=== PATIENT | female | born 1965 | race Caucasian/White ===

== ENCOUNTER 2017-08-31 00:44 | Emergency (ER) | payer OTHER, BC ==
[~2017-08-31] VITALS: Ht 165.1 cm; Wt 115.7 kg
[~2017-08-31 00:44] MED LIST: CITA20 PO; METO25 PO; Metformin HCl750 MG PO; Pepcid40 MG PO
[2017-08-31] MEDS ORDERED: DILTIAZEM 24HR240 M1 PO (01:12)
[2017-08-31 01:46] LABS: Source, Urine Clean Catch
[2017-08-31 01:52] LABS: Bilirubin, Urine Neg (Neg); Blood, Urine 5+ (Neg); Glucose Qualitative, Urine Neg (Neg); Ketones, Urine Neg (Neg); Leukocyte Esterase, Urine 1+ (Neg); Nitrite, Urine Neg (Neg); Protein, Urine 4+ (Neg); Urobilinogen, Urine NORM (Normal)
[2017-08-31 01:55] LABS: Appearance, Urine Turbid (Clear); Color, Urine Red (P-Yellow)
[2017-08-31 02:03] LABS: Bacteria Few /hpf; Red Blood Cells, Urine TNTC /hpf (0-2); Squamous Epithelial Cells Not Seen /hpf (Few)
[2017-08-31] MEDS ORDERED: CEPH500 PO (02:52)
== END 2017-08-31 03:08 | disposition home or self-care (01) ==
LOC: ER 00:44
PROVIDERS: Emergency Medicine
DX: R31.9 Hematuria, unspecified (principal); Z88.1 Allergy status to other antibiotic agents; Z88.8 Allergy status to other drugs, medicaments and biological substances; Z79.899 Other long term (current) drug therapy; Z79.84 Long term (current) use of oral hypoglycemic drugs
CPT/HCPCS: 74176; 81001; 87077; 87086; 87186; 99284

== ENCOUNTER 2017-09-04 06:32 | Day surgery (SDC) | payer OTHER, BC ==
[~2017-09-04] VITALS: Ht 165.1 cm; Wt 116.0 kg
[~2017-09-04 06:32] MED LIST changes: +CEPH500 PO; +DILTIAZEM 24HR240 M1 PO
== END 2017-09-04 15:15 | disposition home or self-care (01) ==
LOC: MHTC 06:32
PROC: B211YZZ Fluoroscopy of Multiple Coronary Arteries using Other Contrast (ICD-10-PCS; principal; 2017-09-04)
DX: I42.1 Obstructive hypertrophic cardiomyopathy (principal); I10 Essential (primary) hypertension; F32.9 Major depressive disorder, single episode, unspecified; E66.9 Obesity, unspecified
CPT/HCPCS: 93454; 99152; C1769; C1894; J1644; J2250; J3010; J7030; Q9967

== ENCOUNTER 2018-07-13 16:56 | Emergency (ER) | payer OTHER, BC ==
[~2018-07-13] VITALS: Ht 165.1 cm; Wt 117.9 kg
[2018-07-13 18:14] LABS: BASOPHILS ABSOLUTE AUTO 0.07 K/mm3 (0.00-0.23); BASOPHILS PERCENT AUTO 1 % (0-2); EOSINOPHILS PERCENT AUTO 3 % (0-6); Hematocrit 43.6 % (33.0-51.0); IMMATURE GRAN ABSOLUTE AUTO 0.04 K/mm3 (0.00-0.10); IMMATURE GRAN PERCENT AUTO 1 % (0-1); LYMPHOCYTES ABSOLUTE AUTO 2.61 K/mm3 (0.84-5.20); LYMPHOCYTES PERCENT AUTO 33 % (21-46); MONOCYTES ABSOLUTE AUTO 0.34 K/mm3 (0.16-1.47); MONOCYTES PERCENT AUTO 4 % (4-13); Mean Corpuscular HGB Conc 32.1 g/dL (31.5-36.5); Mean Corpuscular Volume 90 fL (80-100); NEUTROPHILS PERCENT AUTO 59 % (41-73); Platelet Count 287 K/mm3 (150-400); RDW Coefficient Variation 14.6 % (11.7-14.2); RDW Standard Deviation 48.9 fL (35.1-46.3); Red Blood Cell Count 4.83 M/mm3 (3.80-5.20); White Blood Cell Count 7.96 K/mm3 (4.00-11.30)
[2018-07-13 18:36] LABS: Alanine Aminotransfer (ALT/SGP 29 U/L (12-78); Albumin, Blood 3.8 g/dL (3.4-5.0); Albumin/Globulin Ratio 0.9 (0.8-1.8); Alk Phos 102 U/L (50-136); Anion Gap 9 mmol/L (6-16); Aspartate Aminotrans (AST/SGOT 27 U/L (12-37); Bilirubin, Total 0.4 mg/dL (0.1-1.0); Blood Urea Nitrogen 18 mg/dL (8-24); Bun/Creatinine Ratio 25.6 (12.0-20.0); CO2, Blood 27 mmol/L (21-32); Calcium, Blood 9.1 mg/dL (8.5-10.1); Chloride, Blood 104 mmol/L (98-108); Globulin, Blood 4.2 g/dL (2.2-4.0); Glomerular Filtration Rate >60 (60-); Glucose, Blood 171 mg/dL (70-99); Potassium, Blood 3.6 mmol/L (3.5-5.5); Sodium, Blood 140 mmol/L (136-145)
[2018-07-13] MEDS ORDERED: CARV3.125 PO (19:38)
== END 2018-07-13 20:26 | disposition home or self-care (01) ==
LOC: ER 16:56
PROVIDERS: Emergency Medicine
DX: K43.9 Ventral hernia without obstruction or gangrene (principal); I42.9 Cardiomyopathy, unspecified; Z88.1 Allergy status to other antibiotic agents; Z91.048 Other nonmedicinal substance allergy status; Z79.84 Long term (current) use of oral hypoglycemic drugs; Z79.899 Other long term (current) drug therapy
CPT/HCPCS: 36415; 71250; 80053; 83880; 85025; 93005; 93010; 99284-25

== ENCOUNTER 2019-09-21 00:13 | Observation (INO) | payer OTHER, BC ==
[~2019-09-21] VITALS: Ht 165.1 cm; Wt 124.9 kg
[~2019-09-21 00:13] MED LIST changes: +CARV3.125 PO
[2019-09-21] MEDS ORDERED: GEMFIBROZIL600 MG PO (00:27)
[2019-09-21] MEDS ORDERED: OMEP20ER PO (00:28)
[2019-09-21] MEDS ORDERED: OXYC5 (00:29)
[2019-09-21 01:27] LABS: BASOPHILS ABSOLUTE AUTO 0.06 K/mm3 (0.00-0.23); BASOPHILS PERCENT AUTO 1 % (0-2); EOSINOPHILS ABSOLUTE AUTO 0.24 K/mm3 (0.00-0.68); EOSINOPHILS PERCENT AUTO 3 % (0-6); Hematocrit 39.9 % (33.0-51.0); Hemoglobin 12.7 g/dL (11.5-16.0); IMMATURE GRAN ABSOLUTE AUTO 0.03 K/mm3 (0.00-0.10); IMMATURE GRAN PERCENT AUTO 0 % (0-1); LYMPHOCYTES ABSOLUTE AUTO 2.11 K/mm3 (0.84-5.20); LYMPHOCYTES PERCENT AUTO 25 % (21-46); MONOCYTES ABSOLUTE AUTO 0.55 K/mm3 (0.16-1.47); MONOCYTES PERCENT AUTO 7 % (4-13); Mean Corpuscular HGB 29.1 pg (26.0-34.0); Mean Corpuscular HGB Conc 31.8 g/dL (31.5-36.5); Mean Corpuscular Volume 92 fL (80-100); Mean Platelet Volume 9.8 fL (9.1-12.4); NEUTROPHILS ABSOLUTE AUTO 5.53 K/mm3 (1.96-9.15); NEUTROPHILS PERCENT AUTO 65 % (41-73); Platelet Count 306 K/mm3 (150-400); RDW Coefficient Variation 13.9 % (11.7-14.2); RDW Standard Deviation 47.1 fL (35.1-46.3); Red Blood Cell Count 4.36 M/mm3 (3.80-5.20); White Blood Cell Count 8.52 K/mm3 (4.00-11.30)
[2019-09-21 01:48] LABS: Alanine Aminotransfer (ALT/SGP 142 U/L (12-78); Albumin, Blood 3.6 g/dL (3.4-5.0); Albumin/Globulin Ratio 0.9 (0.8-1.8); Alk Phos 140 U/L (50-136); Anion Gap 6 mmol/L (6-16); Aspartate Aminotrans (AST/SGOT 227 U/L (12-37); Bilirubin, Total 0.5 mg/dL (0.1-1.0); Blood Urea Nitrogen 19 mg/dL (8-24); Bun/Creatinine Ratio 27.3 (12.0-20.0); CO2, Blood 29 mmol/L (21-32); Calcium, Blood 9.2 mg/dL (8.5-10.1); Chloride, Blood 105 mmol/L (98-108); Globulin, Blood 3.9 g/dL (2.2-4.0); Glomerular Filtration Rate >60 (60-); Glucose, Blood 128 mg/dL (70-99); Potassium, Blood 3.9 mmol/L (3.5-5.5); Sodium, Blood 140 mmol/L (136-145); Total Protein, Blood 7.5 g/dL (6.4-8.2); Troponin I <0.015 ng/mL (0.000-0.040)
[2019-09-21 04:44] LABS: CHOL/HDL RATIO 3.8; Cholesterol 199 mg/dL (50-200); HDL Cholesterol 52 mg/dL (>39); Low Density Lipoprotein Chol 104 mg/dL (0-110); Triglycerides 215 mg/dL (30-160); Very Low Density Lipoprot Chol 43 mg/dL (6-32)
--- NOTE | 2019-09-21 05:38 | NUR ---
SHIFT SUMMARY/ARRIVAL TO UNIT. PT ARRIVED TO UNIT VIA WHEELCHAIR, TRANSFERED SELF TO BED, NO WEAKNESS NOTED. PT REPORTS PAIN IN ABDOMEN DIRECTLY BELOW HER SURGICAL SCAR FROM 07/29/19 MID STERNAL REGION. DENIES PAIN OTHERWISE. DENIES NAUSEA. NPO SINCE ARRIVAL TO UNIT, EDUCATED PT ON NPO STATUS. PT [id number] AND IND IN ROOM. UP TO RESTROOM TO VOID. ORIENTED TO UNIT. PLAN TO CONSULT SURGERY TODAY.
--- NOTE | 2019-09-21 07:00 | NUR ---
RECVD REPORT FROM PREVIOUS RN DANTE, PT AWAKENED, A/O X 4, PLEASANT/COOPRATIVE, DENIES CHEST OR EPIGASTRIC PAIN AT THIS TIME, NO NAUSEA. BED IN LOWEST POSITION, BED RAILS UP X 2, CALL LIGHT WITHIN REACH
--- NOTE | 2019-09-21 10:02 | NUR ---
pt requests to be left alone to sleep as much as she can this morning.
--- NOTE | 2019-09-21 10:26 | NUR ---
pt taken off telemetry for HIDA scan, escorted by imaging via wheelchair
--- NOTE | 2019-09-21 12:15 | NUR ---
pt returned from nuclear med, a/o x 4, denies pain, telemetry in place
--- NOTE | 2019-09-21 14:01 | NUR ---
lab in room
[2019-09-21 14:34] LABS: Hematocrit 40.3 % (33.0-51.0); Mean Corpuscular HGB 29.5 pg (26.0-34.0); Mean Corpuscular HGB Conc 32.3 g/dL (31.5-36.5); Mean Corpuscular Volume 92 fL (80-100); Mean Platelet Volume 9.9 fL (9.1-12.4); Platelet Count 254 K/mm3 (150-400); RDW Coefficient Variation 13.8 % (11.7-14.2); RDW Standard Deviation 46.9 fL (35.1-46.3); White Blood Cell Count 4.79 K/mm3 (4.00-11.30)
[2019-09-21 15:07] LABS: Alanine Aminotransfer (ALT/SGP 125 U/L (12-78); Albumin, Blood 3.5 g/dL (3.4-5.0); Albumin/Globulin Ratio 0.9 (0.8-1.8); Alk Phos 125 U/L (50-136); Anion Gap 5 mmol/L (6-16); Aspartate Aminotrans (AST/SGOT 92 U/L (12-37); Bilirubin, Total 0.3 mg/dL (0.1-1.0); Blood Urea Nitrogen 15 mg/dL (8-24); CO2, Blood 31 mmol/L (21-32); Calcium, Blood 8.8 mg/dL (8.5-10.1); Chloride, Blood 106 mmol/L (98-108); Creatinine, Blood 0.58 mg/dL (0.40-1.00); Globulin, Blood 3.8 g/dL (2.2-4.0); Glomerular Filtration Rate >60 (60-); Glucose, Blood 92 mg/dL (70-99); Potassium, Blood 3.7 mmol/L (3.5-5.5); Sodium, Blood 142 mmol/L (136-145); Total Protein, Blood 7.3 g/dL (6.4-8.2)
--- NOTE | 2019-09-21 15:47 | NUR ---
dr phelps rounding on pt
--- NOTE | 2019-09-21 16:32 | NUR ---
SHIFT SUMMARY: A/O X 4, VSS, NO ACUTE CHANGES, TELEMETRY SHOWING NSR, AT TIMES ASYMPTOMATIC BRADYCARDIC WHEN SLEEPING. PT REMAINS PLEASANT/COOPERATIVE, DENIES PAIN AT THIS TIME, STATES TO SLIGHT "DISCOMFORT". PT DENIES N/V. HIDA SCAN NEGATIVE. DR ESCOBEDO ORDERED FULL LIQUID DIET FOR DINNER, IF TOLERATED PT MAY DC TONIGHT. URINE OUTPUT >400 ML THIS SHIFT, NO BM THIS SHIFT.
--- NOTE | 2019-09-21 19:49 | NUR ---
PT DISCHARGED DISCHARGE INSTRUCTIONS GIVEN + QUESTIONS ANSWERED. PT UP INDEPENDENT IN ROOM. DENIES PAIN AT THIS TIME. TOLERATED DINNER TRAY WELL. ENCOURAGED LOW FAT DIET AT DISCHARGE, EDUCATIONAL PACKET GIVEN. IV DC'D WNL. PT DISCHARGED AT 1930 VIA WHEELCHAIR WITH BELONGINGS TO FAMILY VEHICLE, TRANSFERED W/O ASSISTANCE.
== END 2019-09-21 19:30 | disposition home or self-care (01) ==
LOC: ER 00:13 → SURS 00:14
PROVIDERS: Emergency Medicine; ADMIT Internal Medicine
DX: R10.9 Unspecified abdominal pain (principal); R07.89 Other chest pain; Z88.1 Allergy status to other antibiotic agents; Z88.8 Allergy status to other drugs, medicaments and biological substances; Z98.890 Other specified postprocedural states; I10 Essential (primary) hypertension; K21.9 Gastro-esophageal reflux disease without esophagitis; E78.5 Hyperlipidemia, unspecified
CPT/HCPCS: 36415; 71046; 74176; 78226; 80053; 80061; 83690; 84484; 85025; 85027; 93005; 93010; 96365; 96375; 99285-25; A9537; C9113; G0378; J2543

== ENCOUNTER 2021-09-04 09:36 | Day surgery (SDC) | payer OTHER ==
[~2021-09-04] VITALS: Ht 165.1 cm; Wt 128.4 kg
[~2021-09-04 09:36] MED LIST changes: +CITALOPRAM HBR10 MG PO; +GEMFIBROZIL600 MG PO; +LOSA50 PO; +METF500 PO; +OMEP20ER PO; +OXYC5; +ZOLP5 PO
== END 2021-09-04 11:30 | disposition home or self-care (01) ==
LOC: ORSCSDS 09:36
PROVIDERS: Internal Medicine Gastroenterology
PROC: 0DJD8ZZ Inspection of Lower Intestinal Tract, Via Natural or Artificial Opening Endoscopic (ICD-10-PCS; principal; 2021-09-04 10:45)
DX: Z12.11 Encounter for screening for malignant neoplasm of colon (principal); K64.4 Residual hemorrhoidal skin tags; K64.8 Other hemorrhoids; G47.33 Obstructive sleep apnea (adult) (pediatric); E11.9 Type 2 diabetes mellitus without complications; I10 Essential (primary) hypertension; R01.1 Cardiac murmur, unspecified; E66.01 Morbid (severe) obesity due to excess calories; Z68.42 Body mass index [BMI] 45.0-49.9, adult; Z79.84 Long term (current) use of oral hypoglycemic drugs; Z79.899 Other long term (current) drug therapy
CPT/HCPCS: 82947; J2704; J7120

== ENCOUNTER → 2022-02-28 | Outpatient (CLI) | payer OTHER ==
[2022-03-06 18:08] LABS: HPV 16 Positive (Negative); HPV 18 Negative (Negative); HPV OTHER HR TYPES Negative (Negative)
== END | disposition home or self-care (01) ==
LOC: LAB 17:43 → LAB SHORT 17:43
PROVIDERS: Obstetrics & Gynecology
DX: Z09 Encounter for follow-up examination after completed treatment for conditions other than malignant neoplasm (principal); Z87.42 Personal history of other diseases of the female genital tract
CPT/HCPCS: 87624; G0123

== ENCOUNTER → 2023-02-05 | Outpatient (CLI) | payer OTHER ==
[2023-02-10 18:08] LABS: HPV 16 Positive (Negative); HPV 18 Negative (Negative); HPV OTHER HR TYPES Negative (Negative)
== END ==
LOC: LAB 16:45 → LAB SHORT 16:45
PROVIDERS: Obstetrics & Gynecology
DX: R87.619 Unspecified abnormal cytological findings in specimens from cervix uteri (principal)
CPT/HCPCS: 87624; 88175

== ENCOUNTER → 2023-04-20 | Outpatient (CLI) | payer OTHER | LOC: LAB SHORT 07:20 → LAB 07:20 | DX: R87.619 Unspecified abnormal cytological findings in specimens from cervix uteri (principal) | CPT/HCPCS: 88305 ==

== ENCOUNTER → 2025-01-05 | Outpatient (CLI) | payer OTHER ==
[2025-01-09 14:50] LABS: HPVG SOURCE Cervical
== END | disposition home or self-care (01) ==
LOC: LAB 10:02 → LAB SHORT 10:02
PROVIDERS: Obstetrics & Gynecology
DX: Z01.419 Encounter for gynecological examination (general) (routine) without abnormal findings (principal)
CPT/HCPCS: 87624; 87625; G0145

== ENCOUNTER → 2025-03-07 | Outpatient (CLI) | payer OTHER | LOC: LAB SHORT 07:49 → LAB 07:49 | DX: R87.610 Atypical squamous cells of undetermined significance on cytologic smear of cervix (ASC-US) (principal) | CPT/HCPCS: 88305 ==